=== PATIENT | female | born 1985 | race American Indian/Alaskan Native ===

== ENCOUNTER 2016-11-19 15:00 | Emergency (ER) | payer SELFPAY ==
[2016-11-19 15:18] VITALS: BP 117/71
== END 2016-11-19 18:55 | disposition left against medical advice (07) ==
LOC: ED 15:00
DX: R06.02 Shortness of breath (principal); R07.9 Chest pain, unspecified; Z53.21 Procedure and treatment not carried out due to patient leaving prior to being seen by health care provider
CPT/HCPCS: 93005; 93010